=== PATIENT | female | born 1995 | race Two or more races ===

== ENCOUNTER 2018-08-18 01:57 | Inpatient (IN) | payer OTHER ==
[~2018-08-18] VITALS: Ht 157.5 cm; Wt 70.3 kg
[2018-08-18] MEDS ORDERED: PRENATAL TABLE1 EACH PO (07:14)
== END 2018-08-20 13:04 | disposition home or self-care (01) | DRG 806 ==
LOC: LDR 01:57 → OB/GYN 20:22
PROVIDERS: ADMIT Obstetrics & Gynecology
PROC: 10E0XZZ Delivery of Products of Conception, External Approach (ICD-10-PCS; principal; 2018-08-18)
PROC: 10907ZC Drainage of Amniotic Fluid, Therapeutic from Products of Conception, Via Natural or Artificial Opening (ICD-10-PCS; 2018-08-18)
PROC: 0W8NXZZ Division of Female Perineum, External Approach (ICD-10-PCS; 2018-08-18)
PROC: 3E033VJ Introduction of Other Hormone into Peripheral Vein, Percutaneous Approach (ICD-10-PCS; 2018-08-18)
PROC: 4A1HXCZ Monitoring of Products of Conception, Cardiac Rate, External Approach (ICD-10-PCS; 2018-08-18)
DX: O80 Encounter for full-term uncomplicated delivery (principal); B18.1 Chronic viral hepatitis B without delta-agent; Z37.0 Single live birth; Z3A.38 38 weeks gestation of pregnancy; Z22.330 Carrier of Group B streptococcus

== ENCOUNTER → 2020-11-11 | Emergency (ER) | payer OTHER ==
[~2020-11-11] VITALS: Ht 157.5 cm; Wt 63.5 kg
[~2020-11-11] MED LIST: FOLIC ACID0.8 M1; MACROBID 100 M100 MG PO; PRENATAL TABLE1 EACH PO
== END | disposition home or self-care (01) ==
LOC: ER 18:47
DX: O26.891 Other specified pregnancy related conditions, first trimester (principal); S30.0XXA Contusion of lower back and pelvis, initial encounter; S13.4XXA Sprain of ligaments of cervical spine, initial encounter; R10.2 Pelvic and perineal pain; Z34.01 Encounter for supervision of normal first pregnancy, first trimester; V49.9XXA Car occupant (driver) (passenger) injured in unspecified traffic accident, initial encounter; Y93.89 Activity, other specified; Y92.488 Other paved roadways as the place of occurrence of the external cause; Y99.8 Other external cause status

== ENCOUNTER 2021-01-19 13:00 | Outpatient (CLI) | payer OTHER | END 2021-01-19 15:06 | disposition home or self-care (01) | LOC: PRENATAL 13:00 | PROVIDERS: ATTEND Obstetrics & Gynecology Maternal & Fetal Medicine | DX: O35.0XX1 Maternal care for (suspected) central nervous system malformation in fetus, fetus 1 (principal); O35.3XX1 Maternal care for (suspected) damage to fetus from viral disease in mother, fetus 1; O98.512 Other viral diseases complicating pregnancy, second trimester; O09.212 Supervision of pregnancy with history of pre-term labor, second trimester; O36.4XX1 Maternal care for intrauterine death, fetus 1; O98.912 Unspecified maternal infectious and parasitic disease complicating pregnancy, second trimester; Z36.89 Encounter for other specified antenatal screening; Z3A.22 22 weeks gestation of pregnancy ==

== ENCOUNTER 2021-04-20 20:53 | Inpatient (IN) | payer OTHER ==
[~2021-04-20] VITALS: Ht 157.5 cm; Wt 72.6 kg
[2021-04-25] MEDS ORDERED: AMPICILLIN TRI500 MG PO (08:38)
== END 2021-04-21 16:47 | disposition home or self-care (01) | DRG 833 ==
LOC: LDR 20:53
PROVIDERS: ADMIT Obstetrics & Gynecology; ATTEND Obstetrics & Gynecology
PROC: 4A1HXFZ Monitoring of Products of Conception, Cardiac Rhythm, External Approach (ICD-10-PCS; principal; 2021-04-20)
DX: O47.03 False labor before 37 completed weeks of gestation, third trimester (principal); Z3A.35 35 weeks gestation of pregnancy